=== PATIENT | female | born 1990 | race Caucasian/White ===

== ENCOUNTER 2020-01-25 12:44 | Outpatient (CLI) | payer MEDICAID, SELFPAY ==
--- NOTE | 2020-01-25 13:00 | MM_ITS ---
WS: [id number] DIAGNOSTIC RIGHT DIGITAL MAMMOGRAM WITH CAD RIGHT breast ultrasound, limited HISTORY: FIBROCYSTIC RT BREAST, palpable mass which has decreased in size and nearly resolved over th e last several weeks. COMPARISON: None available. Technique: CC, MLO and ML views. Spot compression RIGHT CC Breast composition: The breasts are heterogeneously dense, which may obscure small masses. There is no mass or distortion in the RIGHT breast along the 9:00 axis at the palpable site. There is dense fi broglandular tissue diffusely noted throughout the breast. No distortion. RIGHT breast ultrasound, limited. In the area of the palpable abnormality is a hypoechoic ill-defined mass of mixed echogenicity measur ing 9 x 4 x 9 mm. No increased vascularity. This is most likely fibrocystic change. This is described as decreasing in size by the patient. MM/[place] [id number] IMPRESSION: BI-RADS: 3-Probably Benign FOLLOW UP: 3 Month Follow-up Recommend 3 month ultrasound follow-up of the RIGHT breast palpable area. This has significantly decreased in size over the past several weeks therefore I zahira pect this is probably benign fibrocystic change. As there is residual mixed ech ogenicity in the palpable area short-term follow-up is recommended.
--- NOTE | 2020-01-25 13:05 | US_ITS ---
WS: [id number] DIAGNOSTIC RIGHT DIGITAL MAMMOGRAM WITH CAD RIGHT breast ultrasound, limited HISTORY: FIBROCYSTIC RT BREAST, palpable mass which has decreased in size and nearly resolved over th e last several weeks. COMPARISON: None available. Technique: CC, MLO and ML views. Spot compression RIGHT CC Breast composition: The breasts are heterogeneously dense, which may obscure small masses. There is no mass or distortion in the RIGHT breast along the 9:00 axis at the palpable site. There is dense fi broglandular tissue diffusely noted throughout the breast. No distortion. RIGHT breast ultrasound, limited. In the area of the palpable abnormality is a hypoechoic ill-defined mass of mixed echogenicity measur ing 9 x 4 x 9 mm. No increased vascularity. This is most likely fibrocystic change. This is described as decreasing in size by the patient. US/US breast RT limited* [id number] IMPRESSION: BI-RADS: 3-Probably Benign FOLLOW UP: 3 Month Follow-up Recommend 3 month ultrasound follow-up of the RIGHT breast palpable area. This has significantly decreased in size over the past several weeks therefore I zahira pect this is probably benign fibrocystic change. As there is residual mixed ech ogenicity in the palpable area short-term follow-up is recommended.
== END 2020-01-25 12:45 | disposition home or self-care (01) ==
LOC: RADSHAW 12:49
PROVIDERS: PCP Family Medicine; Visit Provider Family Medicine
DX: N60.11 Diffuse cystic mastopathy of right breast (principal)
CPT/HCPCS: 76642; 77065

== ENCOUNTER 2020-05-02 08:10 | Outpatient (CLI) | payer MEDICAID, SELFPAY ==
--- NOTE | 2020-05-02 08:34 | US_ITS ---
WS: [id number] ULTRASOUND BREAST RIGHT TECHNIQUE: Ultrasound right breast focused area of concern. CLINICAL INFORMATION: R FIBROCYSTIC BREAST COMPARISON: January 25, 2020 FINDINGS: Ultrasound right breast at the 9:00 position. Again seen is dense underlying parenchymal tissue uncha nged in appearance since the prior examination. Dense parenchymal tissue is unchanged in appearance m ost consistent with fibrocystic change. Findings have a benign appearance. IMPRESSION: BI-RADS 2 benign Recommend annual screening mammography age 42
== END 2020-05-02 08:11 | disposition home or self-care (01) ==
PROVIDERS: PCP Family Medicine; Visit Provider Family Medicine
DX: N64.89 Other specified disorders of breast (principal)
CPT/HCPCS: 76642

== ENCOUNTER 2020-09-08 14:09 | Outpatient (CLI) | payer MEDICAID, SELFPAY ==
--- NOTE | 2020-09-08 14:16 | US_ITS ---
WS: [id number] ULTRASOUND THYROID TECHNIQUE: Ultrasound of the thyroid. CLINICAL INFORMATION: THYROID NODULE COMPARISON: FINDINGS: Thyroid: Right and left thyroid lobes are normal in size and echotexture. Hypoechoic solid-appearing right thyroid nodule with internal vascularity is not significantly changed since 2018. Today this me asures 2.2 x 1.0 cm x 2.1 cm Right thyroid lobe: 5.8 cm x 2.9 cm x 2.1 cm Left thyroid lobe: 5.0 cm x 2.3 cm x 2.3 cm. Isthmus: 0.3 mm. Cervical lymphadenopathy: None. US/US thyroid [id number] IMPRESSION: 1. Hypoechoic right thyroid nodule unchanged since . Today this measur es 2.2 x 1.0 cm x 2.1 cm 2. No other significant changes. 3. No nodules in the left thyroid lobe.
== END 2020-09-08 14:10 | disposition home or self-care (01) ==
LOC: US 14:11
PROVIDERS: PCP Family Medicine; Visit Provider Family Medicine
DX: E04.1 Nontoxic single thyroid nodule (principal)
CPT/HCPCS: 76536

== ENCOUNTER 2021-04-13 08:47 | Emergency (ER) | payer MEDICAID, SELFPAY ==
[2021-04-13 08:52] VITALS: BP 158/99; PULSE 96; RESP 17; O2SAT 100; BMI 35.5
--- NOTE | 2021-04-13 09:06 | W.ED.ANXIETY ---
Documented by User: DWAYNE Posada 04/13/21 11:27 HPI - Anxiety General: Chief Complaint: Anxiety Stated Complaint: Chest pains, anxiety, dizziness Time Seen by Provider: 04/13/21 08:48 Source: patient and family () Mode of arrival: ambulatory Limitations: no limitations History of Present Illness: HPI narrative: Patient is a nice 30-year-old female who presents to ED today along with her with a complaint of severe anxiety. Patient tells me she has a history of anxiety but states ever since her COVID infection in January, her anxiety has been substantially worse and is now interfering significantly with her daily life. She states she can no longer be alone and if her needs to leave the house she will immediately start crying, tell him that she is going with him, or walk up to her mom's house. She states when she becomes extremely anxious she gets sweaty, flushed, feels shaky, lightheaded, and feels like her heart is racing. She states she has taken her BP during these episodes and reports it is usually normotensive. She does state her HR increases to 120s. She has seen her PCP Dr. Decker who has placed her on Prozac and as needed Xanax. She feels like she has taken the Xanax more frequently over the past 6 days because anxiety has gotten so bad. complaint: anxiety Symptoms: palpitations, sense of impending doom and other (sweaty, lightheaded ) Severity: severe Relieving factors: nothing Associated symptoms: Reports palpitations; Deny chest pain, chills, fever(s), headache(s), nausea or vomiting Review of Systems Const: Denies: fever(s) or chills Card: Reports: palpitations, lightheadedness and pre-syncope; Denies: chest pain, irregular heart rhythm, edema, swelling of feet/ankles, dyspnea on exertion, orthopnea, leg pain with exertion or acrocyanosis Resp: Denies: dyspnea or chest congestion GI: Denies: abdominal pain, nausea, vomiting or diarrhea Musc: Denies: neck pain, back pain, extremity pain or joint pain Skin/Breast: Denies: rash Neuro: Denies: headache(s) Psych: Reports: anxiety and panic attacks; Denies: depression, irritability, visual hallucinations, auditory hallucinations, suicidal ideation or homicidal ideation Physical Exam Const: COMMON NORMALS: no acute distress, patient oriented x3, no limitations, alert and well nourished GENERAL APPEARANCE: cooperative, well kempt and anxious (at times) NUTRITIONAL APPEARANCE: overweight ORIENTATION/CONSCIOUSNESS: Yes awake, Yes oriented to person, Yes oriented to place and Yes oriented to time HENMT: COMMON NORMALS: normocephalic and atraumatic HEAD & SCALP: normocephalic and atraumatic Resp: COMMON NORMALS: normal respiratory effort and clear to auscultation bilaterally AUSCULTATION: clear to auscultation bilaterally Cardio: COMMON NORMALS: regular rate and regular rhythm RATE: regular rate RHYTHM: regular rhythm OTHER: pt does become tachycardic when she starts describing how debilitating her anxiety is; she becomes very tearful; HR normalizes once she calms down a bit Neuro: COMMON NORMALS: patient oriented x3 SENSORIUM/ORIENTATION: Yes alert, Yes oriented to person, Yes oriented to place and Yes oriented to time Psych: COMMON NORMALS: mental status grossly normal, Normal thought process present, cooperative, normal affect, speech normal and activity/motor behavior normal APPEARANCE: Yes grossly normal and Yes well kempt ATTITUDE: Yes calm ACTIVITY/MOTOR BEHAVIOR: Yes appropriate eye contact and No psychomotor agitation SPEECH: Yes normal speech MOOD & AFFECT: Yes euthymic mood and Yes tearful (at times during history taking) THOUGHT PROCESS: Normal thought process present THOUGHT CONTENT: Yes Normal thought content present ATTENTION/CONCENTRATION: Yes attention grossly intact and Yes concentration grossly intact MEMORY/COGNITION: Yes memory grossly intact and Yes cognition grossly intact INSIGHT: Good insight present (Psych) JUDGEMENT: Good judgement present (Psych) Course Consultations: Consultation #1: Dr. Castillo-recommended starting on Buspar 15mg BID, decreasing Prozac to 10mg daily, and Propranolol 20mg up to TID PRN Vital Signs: Vital signs: Vital Signs Temperature 98.3 F 04/13/21 09:16 Pulse Rate 87 04/13/21 11:46 Respiratory Rate 17 04/13/21 11:46 Blood Pressure 129/80 04/13/21 11:46 Pulse Oximetry 99 04/13/21 11:46 MDM - Anxiety MDM Narrative: Medical decision making narrative: Patient is not acutely suicidal or homicidal. She does not meet inpatient criteria at this time. Spoke to the psychiatrist on-call who recommended placing patient on BuSpar and propranolol as needed and decreasing her Prozac. Patient apparently has had prescriptions for BuSpar and Metoprolol but has never filled them or taken them. Recommend she keep her appointment with [facility] next month. Return to ED precautions given. EKG Data^: EKG 1: EKG interpretation date: 04/13/21 EKG interpretation time: 08:55 Interpretation: Sinus rhythm with short KY interval KY interval [address] elevation or depression changes noted Signed off by Dr. Crouch Lab Data: Labs: Lab Results 04/13/21 04/13/21 04/13/21 Range/Units 09:07 09:27 09:27 WBC 10.1 H (4.0-10.0) 10^3/ uL RBC 5.52 H (4.1-5.3) 10^6/u L Hgb 15.2 (11.5-15.3) g/dL Hct 47.6 H (37.0-47.0) % MCV 86.2 (81-99) fl MCH 27.5 L (28.0-34.0) pg MCHC 31.9 (30.0-36.0) g/dL RDW 13.5 (12.1-15.1) % Plt Count 328 (130-400) 10^3/c mm MPV 10.5 H (7.4-10.4) fL Neut % (Auto) 74.9 % Lymph % (Auto) 18.7 % [place] % (Auto) 5.0 % Eos % (Auto) 0.4 % Baso % (Auto) 0.7 % Neut # (Auto) 7.54 (1.8-7.7) 10^3/u L Lymph # (Auto) 1.9 (0.8-4.8) 10^3/u L [place] # (Auto) 0.5 (0.2-0.9) 10^3/u L Eos # (Auto) 0.0 (0.0-0.8) 10^3/u L Baso # (Auto) 0.1 (0.0-0.1) 10^3/u L Nucleated RBC % (a uto) 0 % Nucleated RBCs # 0.0 /100WBC D-Dimer (0-0.59) ug/mIFE U Sodium 140 (136-145) mmol/L Potassium 3.6 (3.5-5.1) mmol/L Chloride 104 (98-107) mmol/L Carbon Dioxide 22 (22-29) mmol/L Anion Gap 17.6 (5-19) BUN 9 (6-20) mg/dL Creatinine 0.5 (0.5-0.9) mg/dL GFR Calculation 146.9 H (90-130) mL/min Glucose 98 (65-115) mg/dL Calculated Osmolal ity 289 (285-295) mOsm/k g Calcium 9.7 (8.5-10.5) mg/dL Total Bilirubin 0.6 (0.15-1.2) mg/dL AST 16 (0-32) U/L ALT 27 (0-33) U/L Alkaline Phosphata se 100 (35-105) IU/L Total Protein 7.7 (6.6-8.7) g/dL Albumin 4.9 (3.5-5.2) g/dL Globulin 2.8 (1.3-4.6) g/dL TSH 1.42 (0.27-4.20) uIU/ mL HCG, Qual (Negative) Salicylates < 0.3 L (3-10) mg/dL Urine Opiates Scre en Negative (Negative) ng/mL Acetaminophen < 5.0 L (10-30) ug/mL Ur Barbiturates Sc reen Negative (Negative) ng/mL Ur Phencyclidine S crn Negative (Negative) ng/mL Ur Amphetamines Sc reen Negative (Negative) ng/mL U Benzodiazepines Scrn Negative (Negative) ng/mL Urine Cocaine Scre en Negative (Negative) ng/mL U Marijuana (THC) Screen Negative (Negative) ng/mL Ethyl Alcohol < 10 (0-10) mg/dL 04/13/21 04/13/21 Range/Units 09:27 09:27 WBC (4.0-10.0) 10^3/ uL RBC (4.1-5.3) 10^6/u L Hgb (11.5-15.3) g/dL Hct (37.0-47.0) % MCV (81-99) fl MCH (28.0-34.0) pg MCHC (30.0-36.0) g/dL RDW (12.1-15.1) % Plt Count (130-400) 10^3/c mm MPV (7.4-10.4) fL Neut % (Auto) % Lymph % (Auto) % [place] % (Auto) % Eos % (Auto) % Baso % (Auto) % Neut # (Auto) (1.8-7.7) 10^3/u L Lymph # (Auto) (0.8-4.8) 10^3/u L [place] # (Auto) (0.2-0.9) 10^3/u L Eos # (Auto) (0.0-0.8) 10^3/u L Baso # (Auto) (0.0-0.1) 10^3/u L Nucleated RBC % (a uto) % Nucleated RBCs # /100WBC D-Dimer 0.40 (0-0.59) ug/mIFE U Sodium (136-145) mmol/L Potassium (3.5-5.1) mmol/L Chloride (98-107) mmol/L Carbon Dioxide (22-29) mmol/L Anion Gap (5-19) BUN (6-20) mg/dL Creatinine (0.5-0.9) mg/dL GFR Calculation (90-130) mL/min Glucose (65-115) mg/dL Calculated Osmolal ity (285-295) mOsm/k g Calcium (8.5-10.5) mg/dL Total Bilirubin (0.15-1.2) mg/dL AST (0-32) U/L ALT (0-33) U/L Alkaline Phosphata se (35-105) IU/L Total Protein (6.6-8.7) g/dL Albumin (3.5-5.2) g/dL Globulin (1.3-4.6) g/dL TSH (0.27-4.20) uIU/ mL HCG, Qual Negative (Negative) Salicylates (3-10) mg/dL Urine Opiates Scre en (Negative) ng/mL Acetaminophen (10-30) ug/mL Ur Barbiturates Sc reen (Negative) ng/mL Ur Phencyclidine S crn (Negative) ng/mL Ur Amphetamines Sc reen (Negative) ng/mL U Benzodiazepines Scrn (Negative) ng/mL Urine Cocaine Scre en (Negative) ng/mL U Marijuana (THC) Screen (Negative) ng/mL Ethyl Alcohol (0-10) mg/dL Discharge Plan Discharge Patient Disposition: Home Clinical Impression: Anxiety, Panic attacks Condition: Stable Prescriptions: New Prozac 10 mg capsule 10 mg PO DAILY Qty: 30 RF: 0 propranolol 20 mg tablet 20 mg PO Q8H PRN (Reason: anxiety) Qty: 20 RF: 0 Continued buspirone 15 mg Tablet 15 mg PO BID Qty: 60 RF: 0 Discontinued fluoxetine 40 mg capsule 40 mg PO DAILY RF: 0 fluoxetine 20 mg capsule 20 mg PO DAILY RF: 0 risperidone 1 mg Tablet 1 mg PO BEDTIME RF: 0 metoprolol tartrate 25 mg tablet 25 mg PO BID RF: 0 No Action Tylenol Extra Strength 500 mg Tablet 500 - 1,000 mg PO Q6H PRN (Reason: Pain) RF: 0 Xanax 0.5 mg Tablet 0.5 mg PO Q8H PRN (Reason: Anxiety) RF: 0 Xanax 0.25 mg Tablet 0.25 mg PO Q8H PRN (Reason: Anxiety) RF: 0 Singulair 10 mg Tablet 10 mg PO DAILY PRN (Reason: unknown) RF: 0 Discharge Orders: Discharge ED (Routine); Ordered 04/13/21 Ordered By: Mady Rao Referrals: Lloyd Decker MD [Primary Care Provider] - Patient Instructions: Anxiety (ED), Panic Attack Activity Restrictions/Additional Instructions: As we discussed we are decreasing your Prozac to 10 mg daily. We will start you on BuSpar 15 mg twice daily. You may take the propranolol every 8 hours as needed for severe anxiety/panic attacks. This medication does have the potential to cause low blood pressure even at a low dose so please monitor pressure at home. Do not take if blood pressure is below 110/70. Please keep your appointment with [facility] as scheduled. Return to the emergency department immediately for any thoughts of self-harm. Coding Level of Care Code ED Automation Application Engineer for Michael Fwd Exam Detailed Documented by User: Aden Crouch DO 04/13/21 12:06 HPI - Anxiety General: Chief Complaint: Anxiety Stated Complaint: Chest pains, anxiety, dizziness Time Seen by Provider: 04/13/21 08:48 Course Vital Signs: Vital signs: Vital Signs Temperature 98.3 F 04/13/21 09:16 Pulse Rate 87 04/13/21 11:46 Respiratory Rate 17 04/13/21 11:46 Blood Pressure 129/80 04/13/21 11:46 Pulse Oximetry 99 04/13/21 11:46 MDM - Anxiety MDM Narrative: Medical decision making narrative: Reviewed chart reviewed reviewed and discussed with Mady Rao agree with assessment and plan Lab Data: Labs: Lab Results 04/13/21 04/13/21 04/13/21 Range/Units 09:07 09:27 09:27 WBC 10.1 H (4.0-10.0) 10^3/ uL RBC 5.52 H (4.1-5.3) 10^6/u L Hgb 15.2 (11.5-15.3) g/dL Hct 47.6 H (37.0-47.0) % MCV 86.2 (81-99) fl MCH 27.5 L (28.0-34.0) pg MCHC 31.9 (30.0-36.0) g/dL RDW 13.5 (12.1-15.1) % Plt Count 328 (130-400) 10^3/c mm MPV 10.5 H (7.4-10.4) fL Neut % (Auto) 74.9 % Lymph % (Auto) 18.7 % [place] % (Auto) 5.0 % Eos % (Auto) 0.4 % Baso % (Auto) 0.7 % Neut # (Auto) 7.54 (1.8-7.7) 10^3/u L Lymph # (Auto) 1.9 (0.8-4.8) 10^3/u L [place] # (Auto) 0.5 (0.2-0.9) 10^3/u L Eos # (Auto) 0.0 (0.0-0.8) 10^3/u L Baso # (Auto) 0.1 (0.0-0.1) 10^3/u L Nucleated RBC % (a uto) 0 % Nucleated RBCs # 0.0 /100WBC D-Dimer (0-0.59) ug/mIFE U Sodium 140 (136-145) mmol/L Potassium 3.6 (3.5-5.1) mmol/L Chloride 104 (98-107) mmol/L Carbon Dioxide 22 (22-29) mmol/L Anion Gap 17.6 (5-19) BUN 9 (6-20) mg/dL Creatinine 0.5 (0.5-0.9) mg/dL GFR Calculation 146.9 H (90-130) mL/min Glucose 98 (65-115) mg/dL Calculated Osmolal ity 289 (285-295) mOsm/k g Calcium 9.7 (8.5-10.5) mg/dL Total Bilirubin 0.6 (0.15-1.2) mg/dL AST 16 (0-32) U/L ALT 27 (0-33) U/L Alkaline Phosphata se 100 (35-105) IU/L Total Protein 7.7 (6.6-8.7) g/dL Albumin 4.9 (3.5-5.2) g/dL Globulin 2.8 (1.3-4.6) g/dL TSH 1.42 (0.27-4.20) uIU/ mL HCG, Qual (Negative) Salicylates < 0.3 L (3-10) mg/dL Urine Opiates Scre en Negative (Negative) ng/mL Acetaminophen < 5.0 L (10-30) ug/mL Ur Barbiturates Sc reen Negative (Negative) ng/mL Ur Phencyclidine S crn Negative (Negative) ng/mL Ur Amphetamines Sc reen Negative (Negative) ng/mL U Benzodiazepines Scrn Negative (Negative) ng/mL Urine Cocaine Scre en Negative (Negative) ng/mL U Marijuana (THC) Screen Negative (Negative) ng/mL Ethyl Alcohol < 10 (0-10) mg/dL 04/13/21 04/13/21 Range/Units 09:27 09:27 WBC (4.0-10.0) 10^3/ uL RBC (4.1-5.3) 10^6/u L Hgb (11.5-15.3) g/dL Hct (37.0-47.0) % MCV (81-99) fl MCH (28.0-34.0) pg MCHC (30.0-36.0) g/dL RDW (12.1-15.1) % Plt Count (130-400) 10^3/c mm MPV (7.4-10.4) fL Neut % (Auto) % Lymph % (Auto) % [place] % (Auto) % Eos % (Auto) % Baso % (Auto) % Neut # (Auto) (1.8-7.7) 10^3/u L Lymph # (Auto) (0.8-4.8) 10^3/u L [place] # (Auto) (0.2-0.9) 10^3/u L Eos # (Auto) (0.0-0.8) 10^3/u L Baso # (Auto) (0.0-0.1) 10^3/u L Nucleated RBC % (a uto) % Nucleated RBCs # /100WBC D-Dimer 0.40 (0-0.59) ug/mIFE U Sodium (136-145) mmol/L Potassium (3.5-5.1) mmol/L Chloride (98-107) mmol/L Carbon Dioxide (22-29) mmol/L Anion Gap (5-19) BUN (6-20) mg/dL Creatinine (0.5-0.9) mg/dL GFR Calculation (90-130) mL/min Glucose (65-115) mg/dL Calculated Osmolal ity (285-295) mOsm/k g Calcium (8.5-10.5) mg/dL Total Bilirubin (0.15-1.2) mg/dL AST (0-32) U/L ALT (0-33) U/L Alkaline Phosphata se (35-105) IU/L Total Protein (6.6-8.7) g/dL Albumin (3.5-5.2) g/dL Globulin (1.3-4.6) g/dL TSH (0.27-4.20) uIU/ mL HCG, Qual Negative (Negative) Salicylates (3-10) mg/dL Urine Opiates Scre en (Negative) ng/mL Acetaminophen (10-30) ug/mL Ur Barbiturates Sc reen (Negative) ng/mL Ur Phencyclidine S crn (Negative) ng/mL Ur Amphetamines Sc reen (Negative) ng/mL U Benzodiazepines Scrn (Negative) ng/mL Urine Cocaine Scre en (Negative) ng/mL U Marijuana (THC) Screen (Negative) ng/mL Ethyl Alcohol (0-10) mg/dL Discharge Plan Discharge Patient Disposition: Home Clinical Impression: Anxiety, Panic attacks Condition: Stable Prescriptions: New Prozac 10 mg capsule 10 mg PO DAILY Qty: 30 RF: 0 propranolol 20 mg tablet 20 mg PO Q8H PRN (Reason: anxiety) Qty: 20 RF: 0 Continued buspirone 15 mg Tablet 15 mg PO BID Qty: 60 RF: 0 Discontinued fluoxetine 40 mg capsule 40 mg PO DAILY RF: 0 fluoxetine 20 mg capsule 20 mg PO DAILY RF: 0 risperidone 1 mg Tablet 1 mg PO BEDTIME RF: 0 metoprolol tartrate 25 mg tablet 25 mg PO BID RF: 0 No Action Tylenol Extra Strength 500 mg Tablet 500 - 1,000 mg PO Q6H PRN (Reason: Pain) RF: 0 Xanax 0.5 mg Tablet 0.5 mg PO Q8H PRN (Reason: Anxiety) RF: 0 Xanax 0.25 mg Tablet 0.25 mg PO Q8H PRN (Reason: Anxiety) RF: 0 Singulair 10 mg Tablet 10 mg PO DAILY PRN (Reason: unknown) RF: 0 Discharge Orders: Discharge ED (Routine); Ordered 04/13/21 Ordered By: Mady Rao Referrals: Lloyd Decker MD [Primary Care Provider] - Patient Instructions: Anxiety (ED), Panic Attack Activity Restrictions/Additional Instructions: As we discussed we are decreasing your Prozac to 10 mg daily. We will start you on BuSpar 15 mg twice daily. You may take the propranolol every 8 hours as needed for severe anxiety/panic attacks. This medication does have the potential to cause low blood pressure even at a low dose so please monitor pressure at home. Do not take if blood pressure is below 110/70. Please keep your appointment with [facility] as scheduled. Return to the emergency department immediately for any thoughts of self-harm. Coding Level of Care Code ED Automation Application Engineer for Michael Fwkeith Exam Detailed
[2021-04-13 09:16] VITALS: BP 147/99; PULSE 85; RESP 13; TEMP 36.8; O2SAT 100
[2021-04-13 09:35] LABS: Basophils # 0.1 10^3/uL (0.0-0.1); Basophils % 0.7 %; Eosinophils % 0.4 %; Hematocrit 47.6 % (37.0-47.0); Hemoglobin 15.2 g/dL (11.5-15.3); Lymphocytes # 1.9 10^3/uL (0.8-4.8); Lymphocytes % 18.7 %; Mean Corpuscular HGB Conc 31.9 g/dL (30.0-36.0); Mean Corpuscular Hemoglobin 27.5 pg (28.0-34.0); Mean Corpuscular Volume 86.2 fl (81-99); Mean Platelet Volume 10.5 fL (7.4-10.4); Monocytes # 0.5 10^3/uL (0.2-0.9); Neutrophils # 7.54 10^3/uL (1.8-7.7); Neutrophils % 74.9 %; Nucleated Red Blood Cells % 0 %; Platelet Count 328 10^3/cmm (130-400); Red Blood Count 5.52 10^6/uL (4.1-5.3); Red Cell Distribution Width 13.5 % (12.1-15.1); White Blood Count 10.1 10^3/uL (4.0-10.0)
[2021-04-13 09:40] VITALS: BP 149/91; PULSE 91; RESP 24; O2SAT 99
--- NOTE | 2021-04-13 09:41 | PC.NURSE ---
Patient up from bed. This nurse checked on patient and patient states that standing sometimes helps with the anxiety. Left patient with visitor at bedside. No further needs at this time.
[2021-04-13 09:53] LABS: HCG, Serum Qual Negative (Negative)
[2021-04-13 09:58] LABS: Amphetamines Screen Urine Negative (Negative); Barbiturates Screen Urine Negative (Negative); Benzodiazepines Screen Urine Negative (Negative); Cocaine Screen Urine Negative (Negative); Opiate Screen Urine Negative (Negative); PCP Screen Urine Negative (Negative); THC Screen Urine Negative (Negative)
--- NOTE | 2021-04-13 10:00 | PC.PHAR ---
pt states she takes care of her own medications-pt states she has the metoprolol tart but doesnt take it,pt states she has prozac 40mg and took from wed to sat and then went back to taking the 20mg daily states she thought the 40mg was too much,pt states she has a rx for risperidone but hasnt taken it,pt has rx for xanax 0.25mg and 0.5mg pt states she normally takes the 0.25mg q8h prn--pt states she has buspar and only took it once and isnt going to take again-notes are made in the pharmacy comments
[2021-04-13 10:11] VITALS: BP 116/79; PULSE 90; RESP 19; O2SAT 100
--- NOTE | 2021-04-13 10:11 | PC.NURSE ---
Patient given sandwich and cheese stick. Patient states had not eaten since yesterday at noon. No further needs at this time.
[2021-04-13 10:15] LABS: Alanine Aminotransferase 27 U/L (0-33); Albumin Level 4.9 g/dL (3.5-5.2); Alkaline Phosphatase 100 IU/L (35-105); Anion Gap 17.6 (5-19); Aspartate Amino Transferase 16 U/L (0-32); Blood Urea Nitrogen 9 mg/dL (6-20); Calcium 9.7 mg/dL (8.5-10.5); Carbon Dioxide 22 mmol/L (22-29); Chloride 104 mmol/L (98-107); Globulin 2.8 g/dL (1.3-4.6); Glomerular Filtration Rate 146.9 mL/min (90-130); Glucose 98 mg/dL (65-115); Osmolality Calculated 289 mOsm/kg (285-295); Potassium 3.6 mmol/L (3.5-5.1); Sodium 140 mmol/L (136-145); Thyroid Stimulating Hormone 1.42 uIU/mL (0.27-4.20); Total Bilirubin 0.6 mg/dL (0.15-1.2); Total Protein 7.7 g/dL (6.6-8.7)
[2021-04-13 10:17] LABS: Acetaminophen < 5.0 ug/mL (10-30); Alcohol Level < 10 mg/dL (0-10); Salicylate < 0.3 mg/dL (3-10)
[2021-04-13 11:16] VITALS: BP 115/79; PULSE 82; RESP 17; O2SAT 99
[2021-04-13 11:46] VITALS: BP 129/80; PULSE 87; RESP 17; O2SAT 99
== END 2021-04-13 11:26 | disposition home or self-care (01) ==
PROVIDERS: Family Medicine; Emergency Provider Physician Assistant; PCP Family Medicine
DX: F41.9 Anxiety disorder, unspecified (principal); F41.0 Panic disorder [episodic paroxysmal anxiety]
CPT/HCPCS: 80053; 80306; 80307; 84443; 84703; 85025; 85378; 99283

== ENCOUNTER → 2021-05-07 12:36 | Outpatient (BNVA) | payer OTHER, MEDICAID, SELFPAY | PROVIDERS: PCP Family Medicine; Visit Provider Psychiatry & Neurology Psychiatry | DX: F41.1 Generalized anxiety disorder (principal); F41.0 Panic disorder [episodic paroxysmal anxiety]; F17.210 Nicotine dependence, cigarettes, uncomplicated; F43.9 Reaction to severe stress, unspecified | CPT/HCPCS: 99204 ==

== ENCOUNTER → 2021-06-17 08:54 | Outpatient (BNVA) | payer OTHER, SELFPAY | PROVIDERS: PCP Family Medicine; Visit Provider Counselor Mental Health | DX: F41.1 Generalized anxiety disorder (principal); F41.0 Panic disorder [episodic paroxysmal anxiety]; F43.9 Reaction to severe stress, unspecified | CPT/HCPCS: 90834 ==

== ENCOUNTER 2021-06-18 07:52 | Outpatient (CLI) | payer MEDICAID, SELFPAY ==
--- NOTE | 2021-06-18 08:00 | MR_ITS ---
WS: [id number] MRI HEAD WITH CONTRAST TECHNIQUE: Sagittal T1, T2 axial, T2 axial FLAIR, axial susceptibility weighted imaging, axial diffus ion weighted images, and coronal T2 images were obtained. Pre and post-T1 axial and post T1 coronal i mages. ADC and FSPGR images. CLINICAL INFORMATION: BENIGN PAROXYSMAL POSITIONAL VERTIGO COMPARISON: CT 2010 FINDINGS: No evidence of restricted diffusion to suggest acute ischemia. Ventricular system and basal cisterns are patent. Small T2 hyperintense focus in the right occipital white matter measuring 7 mm. No abnorm al gadolinium enhancement. One or 2 tiny foci of T2 hyperintensity in the subcortical white matter of doubtful clinical significance. Normal posterior fossa. Normal vascular flow voids at the skull base . No extra-axial fluid collections. No evidence of mass or mass effect. Paranasal sinuses are well aerated. Mucosal thickening right greater than left mastoid air cells. No hemosiderin on the susceptibly weighted images. 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 Normal optic chiasm and pituitary infund ibulum. Normal enhancing intrasellar pituitary tissue. Recommend correlation with pituitary function studies. Lesion is slightly eccentric to the left. This was likely present on the [address] and ap pears stable. Temporal lobes and hippocampal formations are normal in appearance. Normal cavernous si nuses and Meckel's cave. No abnormal gadolinium enhancement. Normal cavernous sinuses and Meckel's cave. Normal dural venous s inuses. MR/MR head wo/w con [id number] IMPRESSION: 1. No evidence of restricted diffusion to suggest acute ischemia. 2. Small focus of T2 hyperintensity in the right occipital white matter measur ing 7 mm. This is nonspecific in a patient this age but can be seen with infect ious/inflammatory, ischemic or demyelinating etiologies. No abnormal gadolinium enhancement. 3. A few additional tiny foci of T2 hyperintensity in subcortical white matter of doubtful clinical significance. 4. No abnormal gadolinium enhancement. 5. Partial opacification of the right greater than left mastoid air cells. 6. 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 Associated per ipheral enhancement. Normal optic chiasm and pituitary infundibulum. Correlatio n with pituitary function studies. Recommend 6-12 month follow-up with MRI pitu itary.
[2021-06-18] MEDS: gadobenate dimeglumine 20 mL vial IV (08:54)
== END 2021-06-18 07:53 | disposition home or self-care (01) ==
LOC: RADSHAW 07:58
PROVIDERS: PCP Family Medicine; Visit Provider Registered Nurse
DX: F43.9 Reaction to severe stress, unspecified (principal); F41.0 Panic disorder [episodic paroxysmal anxiety]; F41.1 Generalized anxiety disorder; F17.210 Nicotine dependence, cigarettes, uncomplicated
CPT/HCPCS: 70553; 99214; A9577

== ENCOUNTER → 2021-06-24 09:57 | Outpatient (BNVA) | payer OTHER, SELFPAY | PROVIDERS: PCP Family Medicine; Visit Provider Counselor Mental Health | DX: F41.1 Generalized anxiety disorder (principal); F41.0 Panic disorder [episodic paroxysmal anxiety]; F43.9 Reaction to severe stress, unspecified | CPT/HCPCS: 90834 ==

== ENCOUNTER → 2021-07-01 10:17 | Outpatient (BNVA) | payer OTHER, SELFPAY | PROVIDERS: PCP Family Medicine; Visit Provider Counselor Mental Health | DX: F41.1 Generalized anxiety disorder (principal); F41.0 Panic disorder [episodic paroxysmal anxiety]; F43.9 Reaction to severe stress, unspecified | CPT/HCPCS: 90837; 90834 ==

== ENCOUNTER → 2021-07-09 08:56 | Outpatient (BNVA) | payer OTHER, SELFPAY | PROVIDERS: PCP Family Medicine; Visit Provider Counselor Mental Health | DX: F41.1 Generalized anxiety disorder (principal); F41.0 Panic disorder [episodic paroxysmal anxiety]; F43.9 Reaction to severe stress, unspecified | CPT/HCPCS: 90834 ==

== ENCOUNTER → 2021-07-22 10:08 | Outpatient (BNVA) | payer OTHER, SELFPAY | PROVIDERS: PCP Family Medicine; Visit Provider Counselor Mental Health | DX: F41.1 Generalized anxiety disorder (principal); F41.0 Panic disorder [episodic paroxysmal anxiety]; F43.9 Reaction to severe stress, unspecified | CPT/HCPCS: 90837; 90834 ==

== ENCOUNTER → 2021-07-30 10:06 | Outpatient (BNVA) | payer OTHER, SELFPAY | PROVIDERS: PCP Family Medicine; Visit Provider Counselor Mental Health | DX: F41.1 Generalized anxiety disorder (principal); F41.0 Panic disorder [episodic paroxysmal anxiety]; F43.9 Reaction to severe stress, unspecified | CPT/HCPCS: 90837; 90834 ==

== ENCOUNTER → 2021-08-07 13:39 | Outpatient (BNVA) | payer OTHER, SELFPAY | PROVIDERS: PCP Family Medicine; Visit Provider Counselor Mental Health | DX: F41.1 Generalized anxiety disorder (principal); F41.0 Panic disorder [episodic paroxysmal anxiety] | CPT/HCPCS: 90834 ==

== ENCOUNTER → 2021-08-12 08:50 | Outpatient (BNVA) | payer OTHER, SELFPAY | PROVIDERS: PCP Family Medicine; Visit Provider Counselor Mental Health | DX: F41.1 Generalized anxiety disorder (principal); F41.0 Panic disorder [episodic paroxysmal anxiety] | CPT/HCPCS: 90834 ==

== ENCOUNTER → 2021-08-19 08:27 | Outpatient (BNVA) | payer OTHER, SELFPAY | PROVIDERS: PCP Family Medicine; Visit Provider Counselor Mental Health | DX: F41.1 Generalized anxiety disorder (principal); F41.0 Panic disorder [episodic paroxysmal anxiety]; F43.9 Reaction to severe stress, unspecified | CPT/HCPCS: 90837; 90834 ==

== ENCOUNTER → 2021-08-26 08:56 | Outpatient (BNVA) | payer OTHER, SELFPAY | PROVIDERS: PCP Family Medicine; Visit Provider Counselor Mental Health | DX: F41.1 Generalized anxiety disorder (principal); F41.0 Panic disorder [episodic paroxysmal anxiety]; F43.9 Reaction to severe stress, unspecified | CPT/HCPCS: 90834 ==

== ENCOUNTER → 2021-09-01 07:40 | Outpatient (BNVA) | payer OTHER, SELFPAY | PROVIDERS: PCP Family Medicine; Visit Provider Psychiatry & Neurology Psychiatry | DX: F43.9 Reaction to severe stress, unspecified (principal); F41.0 Panic disorder [episodic paroxysmal anxiety]; F41.1 Generalized anxiety disorder; F17.210 Nicotine dependence, cigarettes, uncomplicated | CPT/HCPCS: 99214 ==

== ENCOUNTER → 2021-09-02 08:45 | Outpatient (BNVA) | payer OTHER, SELFPAY | PROVIDERS: PCP Family Medicine; Visit Provider Counselor Mental Health | DX: F41.1 Generalized anxiety disorder (principal); F41.0 Panic disorder [episodic paroxysmal anxiety]; F43.9 Reaction to severe stress, unspecified | CPT/HCPCS: 90837; 90834 ==

== ENCOUNTER → 2021-09-09 09:19 | Outpatient (BNVA) | payer OTHER, SELFPAY | PROVIDERS: PCP Family Medicine; Visit Provider Counselor Mental Health | DX: F41.1 Generalized anxiety disorder (principal); F41.0 Panic disorder [episodic paroxysmal anxiety]; F43.9 Reaction to severe stress, unspecified | CPT/HCPCS: 90834 ==

== ENCOUNTER → 2021-09-16 10:16 | Outpatient (BNVA) | payer OTHER, SELFPAY | PROVIDERS: PCP Family Medicine; Visit Provider Counselor Mental Health | DX: F41.1 Generalized anxiety disorder (principal); F41.0 Panic disorder [episodic paroxysmal anxiety]; F43.9 Reaction to severe stress, unspecified | CPT/HCPCS: 90832; 90834 ==

== ENCOUNTER → 2021-09-23 10:12 | Outpatient (BNVA) | payer OTHER, SELFPAY | PROVIDERS: PCP Family Medicine; Visit Provider Counselor Mental Health | DX: F43.0 Acute stress reaction (principal); F41.0 Panic disorder [episodic paroxysmal anxiety]; F41.1 Generalized anxiety disorder | CPT/HCPCS: 90832 ==

== ENCOUNTER → 2021-10-07 09:11 | Outpatient (BNVA) | payer OTHER, SELFPAY | PROVIDERS: PCP Family Medicine; Visit Provider Counselor Mental Health | DX: F43.9 Reaction to severe stress, unspecified (principal); F41.0 Panic disorder [episodic paroxysmal anxiety]; F41.1 Generalized anxiety disorder | CPT/HCPCS: 90834 ==

== ENCOUNTER → 2021-10-13 07:38 | Outpatient (BNVA) | payer OTHER, SELFPAY | PROVIDERS: PCP Family Medicine; Visit Provider Psychiatry & Neurology Psychiatry | DX: F41.0 Panic disorder [episodic paroxysmal anxiety] (principal); F17.210 Nicotine dependence, cigarettes, uncomplicated; F43.9 Reaction to severe stress, unspecified; F41.1 Generalized anxiety disorder | CPT/HCPCS: 99213 ==

== ENCOUNTER → 2021-10-14 08:59 | Outpatient (BNVA) | payer OTHER, SELFPAY | PROVIDERS: PCP Family Medicine; Visit Provider Counselor Mental Health | DX: F41.0 Panic disorder [episodic paroxysmal anxiety] (principal); F41.1 Generalized anxiety disorder; F43.9 Reaction to severe stress, unspecified | CPT/HCPCS: 90837; 90834 ==

== ENCOUNTER → 2021-10-21 10:09 | Outpatient (BNVA) | payer OTHER, SELFPAY | PROVIDERS: PCP Family Medicine; Visit Provider Counselor Mental Health | DX: F43.9 Reaction to severe stress, unspecified (principal); F41.0 Panic disorder [episodic paroxysmal anxiety]; F41.1 Generalized anxiety disorder | CPT/HCPCS: 90837; 90834 ==

== ENCOUNTER → 2021-10-28 08:53 | Outpatient (BNVA) | payer OTHER, SELFPAY | PROVIDERS: PCP Family Medicine; Visit Provider Counselor Mental Health | DX: F43.9 Reaction to severe stress, unspecified (principal); F41.0 Panic disorder [episodic paroxysmal anxiety]; F41.1 Generalized anxiety disorder | CPT/HCPCS: 90834 ==

== ENCOUNTER → 2021-11-04 10:51 | Outpatient (BNVA) | payer OTHER, SELFPAY | PROVIDERS: PCP Family Medicine; Visit Provider Counselor Mental Health | DX: F43.9 Reaction to severe stress, unspecified (principal); F41.0 Panic disorder [episodic paroxysmal anxiety]; F41.1 Generalized anxiety disorder | CPT/HCPCS: 90834; 87070; 87205 ==

== ENCOUNTER → 2021-11-11 09:52 | Outpatient (BNVA) | payer OTHER, SELFPAY | PROVIDERS: PCP Family Medicine; Visit Provider Counselor Mental Health | DX: F41.1 Generalized anxiety disorder (principal); F43.9 Reaction to severe stress, unspecified; F41.0 Panic disorder [episodic paroxysmal anxiety] | CPT/HCPCS: 90834 ==

== ENCOUNTER → 2021-11-18 09:51 | Outpatient (BNVA) | payer OTHER, SELFPAY | PROVIDERS: PCP Family Medicine; Visit Provider Counselor Mental Health | DX: F41.1 Generalized anxiety disorder (principal); F43.9 Reaction to severe stress, unspecified; F41.0 Panic disorder [episodic paroxysmal anxiety] | CPT/HCPCS: 90834 ==

== ENCOUNTER → 2021-11-25 09:58 | Outpatient (BNVA) | payer OTHER, SELFPAY | PROVIDERS: PCP Family Medicine; Visit Provider Counselor Mental Health | DX: F43.9 Reaction to severe stress, unspecified (principal); F41.0 Panic disorder [episodic paroxysmal anxiety]; F41.1 Generalized anxiety disorder | CPT/HCPCS: 90837; 90834 ==

== ENCOUNTER → 2021-12-02 10:11 | Outpatient (BNVA) | payer OTHER, SELFPAY | PROVIDERS: PCP Family Medicine; Visit Provider Counselor Mental Health | DX: F41.1 Generalized anxiety disorder (principal); F43.9 Reaction to severe stress, unspecified; F41.0 Panic disorder [episodic paroxysmal anxiety] | CPT/HCPCS: 90834 ==

== ENCOUNTER → 2021-12-09 09:39 | Outpatient (BNVA) | payer OTHER, SELFPAY | PROVIDERS: PCP Family Medicine; Visit Provider Counselor Mental Health | DX: F43.9 Reaction to severe stress, unspecified (principal); F41.0 Panic disorder [episodic paroxysmal anxiety]; F41.1 Generalized anxiety disorder | CPT/HCPCS: 90837; 90834 ==

== ENCOUNTER → 2021-12-16 10:06 | Outpatient (BNVA) | payer OTHER, SELFPAY | PROVIDERS: PCP Family Medicine; Visit Provider Counselor Mental Health | DX: F41.0 Panic disorder [episodic paroxysmal anxiety] (principal); F43.9 Reaction to severe stress, unspecified; F41.1 Generalized anxiety disorder | CPT/HCPCS: 90834 ==

== ENCOUNTER → 2021-12-23 09:57 | Outpatient (BNVA) | payer OTHER, SELFPAY | PROVIDERS: PCP Family Medicine; Visit Provider Counselor Mental Health | DX: F41.1 Generalized anxiety disorder (principal); F43.9 Reaction to severe stress, unspecified; F41.0 Panic disorder [episodic paroxysmal anxiety] | CPT/HCPCS: 90834 ==

== ENCOUNTER → 2021-12-30 10:20 | Outpatient (BNVA) | payer OTHER, SELFPAY | PROVIDERS: PCP Family Medicine; Visit Provider Counselor Mental Health | DX: F41.1 Generalized anxiety disorder (principal); F43.9 Reaction to severe stress, unspecified; F41.0 Panic disorder [episodic paroxysmal anxiety] | CPT/HCPCS: 90832 ==

== ENCOUNTER → 2022-01-06 10:12 | Outpatient (BNVA) | payer OTHER, SELFPAY | PROVIDERS: PCP Family Medicine; Visit Provider Counselor Mental Health | DX: F41.1 Generalized anxiety disorder (principal); F43.9 Reaction to severe stress, unspecified; F41.0 Panic disorder [episodic paroxysmal anxiety] | CPT/HCPCS: 90837; 90834 ==

== ENCOUNTER → 2022-01-13 13:17 | Outpatient (BNVA) | payer OTHER, SELFPAY | PROVIDERS: PCP Family Medicine; Visit Provider Counselor Mental Health | DX: F41.0 Panic disorder [episodic paroxysmal anxiety] (principal); F43.9 Reaction to severe stress, unspecified; F41.1 Generalized anxiety disorder | CPT/HCPCS: 90832 ==

== ENCOUNTER → 2022-01-22 10:05 | Outpatient (BNVA) | payer OTHER, SELFPAY | PROVIDERS: PCP Family Medicine; Visit Provider Counselor Mental Health | DX: F41.0 Panic disorder [episodic paroxysmal anxiety] (principal); F41.1 Generalized anxiety disorder; F43.9 Reaction to severe stress, unspecified | CPT/HCPCS: 90834 ==

== ENCOUNTER → 2022-02-03 10:08 | Outpatient (BNVA) | payer OTHER, SELFPAY | PROVIDERS: PCP Family Medicine; Visit Provider Counselor Mental Health | DX: F41.9 Anxiety disorder, unspecified (principal); F41.0 Panic disorder [episodic paroxysmal anxiety]; F41.1 Generalized anxiety disorder | CPT/HCPCS: 90834 ==

== ENCOUNTER 2022-09-15 07:21 | Outpatient (CLI) | payer MEDICAID, SELFPAY ==
--- NOTE | 2022-09-15 07:29 | MR_ITS ---
WS: [id number] MRI HEAD WITH CONTRAST TECHNIQUE: Sagittal T1, T2 axial, T2 axial FLAIR, axial susceptibility weighted imaging, axial diffus ion weighted images, and coronal T2 images were obtained. Pre and post-T1 axial and post T1 coronal i mages. ADC and FSPGR images. CLINICAL INFORMATION: EPISODIC RECURRENT VERTIGO COMPARISON: MRI June 18, 2021 FINDINGS: No evidence of restricted diffusion to suggest acute ischemia. Ventricular system and basal cisterns are patent. Stable 7 mm focus of T2 hyperintensity in the RIGHT occipital periventricular white matte r. A few additional tiny foci of T2 hyperintensity in the subcortical white matter unchanged from pre vious. No evidence of progression.No significant parenchymal volume loss. Small T1 hyperintense intrasellar lesion with slight suprasellar extension measuring 6.7 x 7.6 x 6.4 mm AP by transverse by craniocaudal. Slight mass effect on the pituitary infundibulum. Normal optic c hiasm. Suprasellar extension slightly increased compared to previous. Previously lesion measured appr oximately 5 mm. 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 Recommend ne urosurgery consultation. Associated peripheral enhancement. Correlation with pituitary function stud ies. Recommend 6-12 month follow-up with MRI pituitary. Normal posterior fossa. Normal vascular flow voids at the skull base. No extra-axial fluid collection s. Paranasal sinuses and mastoid air cells well aerated. Mild mucosal thickening in the mastoid tips . Normal posterior nasopharynx. Normal parapharyngeal fat. No hemosiderin on susceptibly weighted timi ges. No abnormal gadolinium enhancement. Normal cavernous sinuses and Meckel's cave. Temporal lobes and hi ppocampal formations are normal in appearance. Normal dural venous sinuses. MR/MR head wo/w con [id number] IMPRESSION: 1. No evidence of restricted diffusion to suggest acute ischemia. 2. Unchanged small focus of T2 hyperintensity in the right occipital white mat ter measuring 7 mm. This is nonspecific in a patient this age but can be seen w ith infectious/inflammatory, ischemic or demyelinating etiologies. No abnormal gadolinium enhancement. 3. A few additional tiny foci of T2 hyperintensity in subcortical white matter of doubtful clinical significance. 4. Small T1 hyperintense intrasellar lesion with slight suprasellar extension measuring 6.7 x 7.6 x 6.4 mm AP by transverse by craniocaudal appears slightly larger today. Slight mass effect on the pituitary infundibulum. Normal optic ch iasm. Suprasellar extension slightly increased compared to previous. 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 Recommend neuros urgery consultation. Correlation with pituitary function studies. Recommend 6-1 2 month follow-up with MRI pituitary without and with gadolinium enhancement.
[2022-09-15] MEDS: gadobenate dimeglumine 20 mL vial IV (08:14)
== END 2022-09-15 07:22 | disposition home or self-care (01) ==
PROVIDERS: PCP Family Medicine; Visit Provider Family Medicine
DX: R42 Dizziness and giddiness (principal); G93.89 Other specified disorders of brain
CPT/HCPCS: 70553; A9577

== ENCOUNTER 2023-11-02 09:00 | Emergency (ER) | payer MEDICAID, SELFPAY ==
[2023-11-02 09:04] VITALS: BP 110/76; PULSE 90; RESP 18; TEMP 36.8; O2SAT 100; BMI 31.3
--- NOTE | 2023-11-02 09:04 | ECG_ITS ---
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 [id number]
--- NOTE | 2023-11-02 09:04 | XR_ITS ---
WS: [id number] Portable AP upright chest, 11/02/2023 Clinical Data: dyspnea/cough Comparison: Two-view chest, 07/22/2015. Findings: No nodules, masses or effusions are seen. The heart is normal. The pulmonary vascularity is not increased. No pneumonia or pneumothorax is seen. Monitor leads are on the chest wall. Impression: Negative chest.
--- NOTE | 2023-11-02 09:09 | ED_ITS ---
HPI - Chest Pain 2 General: Chief Complaint: Chest Pain Stated Complaint: Chest Pain Time Seen by Provider: 11/02/23 09:01 Source: patient Mode of arrival: ambulatory History of Present Illness: 32-year-old female presents emergency ro om planing of intermittent chest pressure and palpitations. Began mostly today. Feels a fluttering sensation followed by shortness of breath. She has some nausea no vomiting. No history of any cardiac arrhythmias, she denies frequent use of caffeine. She is on Nexplanon for control. Takes alprazolam for anxiety MD complaint: chest pain Onset (ago): minute(s) Timing of current episode: episodic Onset: during rest Pain location: substernal Pain radiation: none Quality: heaviness Relieving factors: nothing Exacerbating factors: nothing Associated symptoms: Deny abdominal pain, diaphoresis, dyspnea, fever(s), leg edema, nausea, palpitations, sense of impending doom, syncope or vomiting Review of Systems 2 Const: Denies: fever(s) or diaphoresis Card: Denies: palpitations or syncope Resp: Denies: dyspnea GI: Denies: abdominal pain, nausea or vomiting : Denies: dysuria, urinary frequency or urinary urgency Musc: Denies: neck pain or back pain Skin/Breast: Denies: rash PFSH ED 2 PFSH: Medical History (Updated 11/02/23 @ 11:22 by Aden Crouch DO) 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 Garcia -neurologist and is on meclizine No pertinent past medical history Denies diabetes, asthma, hypertension, seizures, DVT/PE PCP: Dr. Decker Generalized anxiety disorder Diagnosed in January 2021 and is prescribed medication by her primary care provider but does follow-up with Dr. Temple at [facility] and does do therapy there as well. Surgical History History of myringotomy x 2 At the age of 9 and again at the age of 16 History of tonsillectomy and adenoidectomy Done at the age of 16 History of cholecystectomy Laparoscopic procedure in 2016 History of delivery in 2012 S/P dilation and curettage x 2 In 2014 and 2016 for miscarriage Family History Mother Diabetes Hyperlipidemia Hypertension Thyroid disease Father Diabetes Hypertension Grandmother Stroke Paternal Brother Cerebral palsy Denies family history of Colon cancer Ovarian cancer Heart disease Breast cancer Uterine cancer Social History Smoking and tobacco/nicotine status: current every day tobacco/nicotine user cigarettes Packs smoked per day: 1 Years cigarettes smoked: 16 Quit status (tobacco/nicotine): has tried quititng Number of times tried to quit tobacco: 5 Second hand smoke exposure: Yes Alcohol intake: never Substance/Drug Use: never Physical Exam 2 Const: COMMON NORMALS: no acute distress GENERAL APPEARANCE: cooperative and comfortable ORIENTATION/CONSCIOUSNESS: Yes awake, Yes oriented to person, Yes oriented to place and Yes oriented to time HENMT: COMMON NORMALS: normocephalic, atraumatic and hearing grossly normal bilaterally HEAD & SCALP: normocephalic and atraumatic Resp: COMMON NORMALS: normal respiratory effort, No retractions, No use of accessory muscles and clear to auscultation bilaterally AUSCULTATION: clear to auscultation bilaterally Cardio: COMMON NORMALS: regular rate, regular rhythm and No murmurs present (Cardio) RATE: regular rate RHYTHM: regular rhythm GI: COMMON NORMALS: Soft to palpation and No hepatosplenomegaly present A USCULTATION: Yes normoactive bowel sounds PALPATION: Yes Soft to palpation, No Tenderness to palpation present (GI), No Guarding due to palpation present (GI) and Yes No hepatosplenomegaly present Extremity: COMMON NORMALS: normal to inspection, capillary refill normal, no clubbing, cyanosis or edema, no calf tenderness and no pedal edema Neuro: SENSORIUM/ORIENTATION: Yes oriented to person, Yes oriented to place and Yes oriented to time Skin: COMMON NORMALS: no rashes or lesions noted GENERAL SKIN EXAM: no rashes or lesions noted Course 2 Vital Signs: Vital signs: Vital Signs Temperature 98.2 F 11/02/23 09:04 Pulse Rate 77 11/02/23 11:40 Respiratory Rate 17 11/02/23 11:40 Blood Pressure 110/76 11/02/23 09:11 Pulse Oximetry 100 11/02/23 09:11 Oxygen Delivery Me thod Room Air 11/02/23 09:04 MDM - Chest Pain Medical Decision Making Labs and imaging reviewed. No acute ST changes on EKG. White count normal chest x-ray normal. Symptoms not typical for acute coronary syndrome or PE. Patient is feeling better will discharge patient home follow-up with primary care. Return if has further problems. Medical Records I reviewed the patient's medical records. Lab Data I reviewed the patient's lab results. 11/02/23 09:10 11/02/23 09:10 Laboratory Results WBC 7.68 10^3/uL (3.29-11.43) 11/02/23 09:10 RBC 5.24 10^6/uL (3.85-5.65) 11/02/23 09:10 Hgb 14.80 g/dL (11.27-16.99) 11/02/23 09:10 Hct 45.4 % (36-47) 11/02/23 09:10 MCV 86.6 fl (85-98) 11/02/23 09:10 MCH 28.2 pg (27-33) 11/02/23 09:10 MCHC 32.6 g/dL (30-55) 11/02/23 09:10 RDW 13.2 % (12.1-15.1) 11/02/23 09:10 Plt Count 293 10^3/cmm (157-399) 11/02/23 09:10 MPV 9.6 fL (7.4-10.4) 11/02/23 09:10 Neut % (Auto) 66.5 % 11/02/23 09:10 Lymph % (Auto) 25.4 % 11/02/23 09:10 [place] % (Auto) 5.9 % 11/02/23 09:10 Eos % (Auto) 1.0 % 11/02/23 09:10 Baso % (Auto) 0.9 % 11/02/23 09:10 Neut # (Auto) 5.11 10^3/uL (1.8-7.7) 11/02/23 09:10 Lymph # (Auto) 2.0 10^3/uL (0.8-4.8) 11/02/23 09:10 [place] # (Auto) 0.5 10^3/uL (0.2-0.9) 11/02/23 09:10 Eos # (Auto) 0.1 10^3/uL (0.0-0.8) 11/02/23 09:10 Baso # (Auto) 0.1 10^3/uL (0.0-0.1) 11/02/23 09:10 Nucleated RBC % (auto) 0 % 11/02/23 09:10 Nucleated RBCs # 0.0 /100WBC 11/02/23 09:10 Sodium 141 mmol/L (136-145) 11/02/23 09:10 Potassium 4.0 mmol/L (3.5-5.1) 11/02/23 09:10 Chloride 106 mmol/L (98-107) 11/02/23 09:10 Carbon Dioxide 24 mmol/L (22-29) 11/02/23 09:10 Anion Gap 15.0 (5-19) 11/02/23 09:10 BUN 10 mg/dL (6-20) 11/02/23 09:10 Creatinine 0.7 mg/dL (0.5-0.9) 11/02/23 09:10 GFR Calculation 98.3 mL/min (90-130) 11/02/23 09:10 Glucose 94 mg/dL (65-115) 11/02/23 09:10 Calculated Osmolality 291 mOsm/kg (285-295) 11/02/23 09:10 Calcium 9.1 mg/dL (8.5-10.5) 11/02/23 09:10 Total Bilirubin 0.6 mg/dL (0.15-1.2) 11/02/23 09:10 AST 15 U/L (0-32) 11/02/23 09:10 ALT 14 U/L (0-33) 11/02/23 09:10 Alkaline Phosphatase 62 U/L (35-105) 11/02/23 09:10 Total Protein 7.1 g/dL (6.6-8.7) 11/02/23 09:10 Albumin 4.5 g/dL (3.5-5.2) 11/02/23 09:10 Globulin 2.6 g/dL (1.3-4.6) 11/02/23 09:10 Urine Color Yellow (Yellow) 11/02/23 09:26 Urine Appearance Clear (CLEAR) 11/02/23 09:26 Urine pH 6 (5-7) 11/02/23 09:26 Ur Specific [place] 1.030 (1.005-1.030) 11/02/23 09:26 Urine Protein Neg (Negative) 11/02/23 09:26 Urine Glucose (UA) Norm (Normal) 11/02/23 09:26 Urine Ketones 2+ (Negative) H 11/02/23 09:26 Urine Blood 2+ (Negative) H 11/02/23 09:26 Urine Nitrate Negative (Negative) 11/02/23 09:26 Urine Bilirubin Neg (Negative) 11/02/23 09:26 Urine Urobilinogen Norm mg/dL (Negative) 11/02/23 09:26 Ur Leukocyte Esterase Negative (Negative) 11/02/23 09:26 Urine RBC 0-4 /hpf (0-2) H 11/02/23 09:26 Urine WBC 0-4 /hpf (0-5) H 11/02/23 09:26 Ur Squamous Epith Cells 0-4 /hpf (0-5) H 11/02/23 09:26 Amorphous Sediment Not Reportable 11/02/23 09:26 Urine Bacteria Trace /hpf (NONE) 11/02/23 09:26 All radiology interpretation(s) finalized by discharge Discharge Plan Discharge Patient Disposition: Home Clinical Impression: Atypical chest pain, Mass of pituitary Condition: Stable Prescriptions: No Action Nexplanon 68 mg implant See Rx Instructions .ROUTE .COMPLEX Patient Comments: Implanted to left arm 07/15/2020. Good for 5 years. Rx Instructions: 1 implant subdermally acetaminophen [Tylenol Extra Strength] 500 mg Tablet 500 mg PO Q6H PRN (Reason: Pain) alprazolam 0.5 mg tablet 0.5 mg PO TID PRN (Reason: Anxiety) Discharge Orders: Discharge ED (Routine); Ordered 11/02/23 Ordered By: Aden Crouch Referrals: Lloyd Decker MD [Primary Care Provider] - Discharge Diet: Usual diet Discharge Activity: Increase activity as tolerated Patient Instructions: Opioid Safety, Pain Management Activity Restrictions/Additional Instructions: Thank you for choosing [facility] for your healthcare needs today. Please realize this is an emergency room and that we are providing you with a medical screening exam and this may not be complete and all inclusive of all the testing and or work up that you may need to determine your ailment or severity of your illness. It is very important that you follow up as instructed or that you return to the Emergency Department should you have concerns or if your condition changes or worsens in any way. You were seen today for chest discomfort. EKG laboratory studies and chest x- ray appear normal. Monitoring while you are in the emergency room did not show any arrhythmias. You had mentioned some occasional blurry vision difficulty focusing. It is important that you follow-up with your doctor in [place] on the pituitary mass for worsening or change symptoms return to the emergency room. Coding Level of Care Code ED [employer] Att[employer] for Michael Dupont
[2023-11-02 09:11] VITALS: BP 110/76; PULSE 83; RESP 15; O2SAT 100
--- NOTE | 2023-11-02 09:13 | PC.PHAR ---
pt states she takes care of her own medications-pt states she is no longer taking amitriptyline 10mg hs last filled 10/21/22 and lithium carbonate 300mg bid last filled 05/27/23 30d/s-pt states only takes xanax 0.5mg tid prn ext shows last filled 0.5mg tid 09/27/23 30d/s-
[2023-11-02 09:17] LABS: Basophils # 0.1 10^3/uL (0.0-0.1); Basophils % 0.9 %; Eosinophils # 0.1 10^3/uL (0.0-0.8); Hematocrit 45.4 % (36-47); Lymphocytes % 25.4 %; Mean Corpuscular HGB Conc 32.6 g/dL (30-55); Mean Corpuscular Hemoglobin 28.2 pg (27-33); Mean Corpuscular Volume 86.6 fl (85-98); Mean Platelet Volume 9.6 fL (7.4-10.4); Monocytes # 0.5 10^3/uL (0.2-0.9); Monocytes % 5.9 %; Neutrophils # 5.11 10^3/uL (1.8-7.7); Neutrophils % 66.5 %; Nucleated Red Blood Cells % 0 %; Platelet Count 293 10^3/cmm (157-399); Red Blood Count 5.24 10^6/uL (3.85-5.65); Red Cell Distribution Width 13.2 % (12.1-15.1); White Blood Count 7.68 10^3/uL (3.29-11.43)
[2023-11-02 09:38] LABS: Alanine Aminotransferase 14 U/L (0-33); Albumin Level 4.5 g/dL (3.5-5.2); Alkaline Phosphatase 62 U/L (35-105); Aspartate Amino Transferase 15 U/L (0-32); Blood Urea Nitrogen 10 mg/dL (6-20); Calcium 9.1 mg/dL (8.5-10.5); Carbon Dioxide 24 mmol/L (22-29); Chloride 106 mmol/L (98-107); Creatinine Clr Calc Pharmacy 131.3059; Globulin 2.6 g/dL (1.3-4.6); Glomerular Filtration Rate 98.3 mL/min (90-130); Glucose 94 mg/dL (65-115); Osmolality Calculated 291 mOsm/kg (285-295); Sodium 141 mmol/L (136-145); Total Bilirubin 0.6 mg/dL (0.15-1.2); Total Protein 7.1 g/dL (6.6-8.7)
[2023-11-02 09:45] LABS: Urine Appearance Clear (CLEAR); Urine Color Yellow (Yellow); pH Urine 6 (5-7)
[2023-11-02 09:46] LABS: Add Urine Culture? No; Add Urine Microscopic? YES; Bacteria Urine TRACE /hpf; Bilirubin Urine Neg (Negative); Blood Urine 2+ (Negative); Glucose Urine UA Norm (Normal); Ketones Urine 2+ (Negative); Leukocyte Esterase Urine Negative (Negative); Nitrate Urine Negative (Negative); Protein Urine Neg (Negative); RBC Urine 0-4 /hpf (0-2); Squamous Epithelial Cell Urine 0-4 /hpf (0-5); Urobilinogen Urine Norm (Negative); WBC Urine 0-4 /hpf (0-5)
[2023-11-02 10:40] VITALS: PULSE 77; RESP 17
[2023-11-02 11:40] VITALS: PULSE 77; RESP 17
== END 2023-11-02 11:41 | disposition home or self-care (01) ==
PROVIDERS: Emergency Provider Family Medicine; PCP Family Medicine
DX: R07.89 Other chest pain (principal); E23.7 Disorder of pituitary gland, unspecified; F17.210 Nicotine dependence, cigarettes, uncomplicated
CPT/HCPCS: 71045; 80053; 81001; 85025; 93005; 99285

== ENCOUNTER 2024-04-16 14:00 | Outpatient (CLI) | payer MEDICAID, SELFPAY ==
--- NOTE | 2024-04-16 14:15 | MM_ITS ---
WS: [id number] BILATERAL 3D TOMOSYNTHESIS DIGITAL DIAGNOSTIC MAMMOGRAPHY WITH CAD CLINICAL INFORMATION: MASS OF R BREAST HISTORY: Palpable lumps RIGHT breast. COMPARISON: 01/25/2020 and 05/02/2020 TECHNIQUE: Bilateral CC, MLO, and ML views. FINDINGS: The breasts are composed of heterogeneous fibroglandular density, which can limit the detection of sm all underlying mass lesions. Palpable marker is RIGHT breast. Dense breast tissue deep to the palpabl e marker central RIGHT breast. No definite abnormalities deep to the marker upper outer RIGHT breast. Ultrasound is pending. No abnormalities LEFT breast. ULTRASOUND BREAST RIGHT TECHNIQUE: Ultrasound right breast focused area of concern. CLINICAL INFORMATION: MASS OF R BREAST FINDINGS: Ultrasound RIGHT breast areas of concern 9:00 to 12:00 positions. Dense fibrocystic tissue at the 9 o 'clock position similar to the prior examination. This has a benign appearance. No suspicious abnorma lities at the 12 o'clock position. Dense fibrocystic tissue in this area also. No suspicious lesions to target for biopsy. MM/[place] [id number] IMPRESSION: BI-RADS: 2-Benign FOLLOW UP: Age 42 Recommend annual screening mammography age 42
== END 2024-04-16 14:12 | disposition home or self-care (01) ==
PROVIDERS: PCP Family Medicine; Visit Provider Nurse Practitioner Family
DX: N63.10 Unspecified lump in the right breast, unspecified quadrant (principal); R92.333 Mammographic heterogeneous density, bilateral breasts
CPT/HCPCS: 76642; 77062; G0279

== ENCOUNTER 2024-04-16 17:24 | Emergency (ER) | payer MEDICAID, SELFPAY ==
[2024-04-16 17:29] VITALS: BP 144/71; PULSE 113; TEMP 36.9; O2SAT 100
--- NOTE | 2024-04-16 17:36 | XRR_ITS ---
PROCEDURE INFORMATION: Exam: XR Chest Exam date and time: 04/16/2024 5:45 PM Age: 33 years old Clinical indication: Other: Shaking; Additional info: Seizure-like activity TECHNIQUE: Imaging protocol: Radiologic exam of the chest. Views: 1 view. COMPARISON: CR XR chest 1V portable [id number] 11/02/2023 9:18 AM FINDINGS: Lungs: Unremarkable. No consolidation. Pleural spaces: Unremarkable. No pleural effusion. No pneumothorax. Heart/Mediastinum: Unremarkable. No cardiomegaly. Bones/joints: Unremarkable. XR/XR chest 1V portable [id number] IMPRESSION: No acute findings.
--- NOTE | 2024-04-16 17:37 | W.ED.SEIZURE ---
HPI - Seizure General: Chief Complaint: Seizure Stated Complaint: shaking bad, light headed Time Seen by Provider: 04/16/24 17:26 Source: patient and family (mom) Mode of arrival: ambulatory Limitations: no limitations History of Present Illness: HPI Narrative: Patient is a 33-year-old female past medical history of anxiety and depression who presents to the emergency department accompanied by mom for shaking/seizure-like activity onset today. Per mom, patient had reported to her that she felt off all day, and had a mammogram earlier today. She has no history of seizures, however for the past hour or so has been shaking uncontrollably and per mom, has been disoriented. Initially on examination, patient was not responding to verbal stimulus, however soon after begins explaining that today she has felt weak. She reports to me a history of panic attacks but states this feels much worse. In the prior few days, there is no concerning history to report. At this time she does feel anxious and nauseous, and is observed to be shaking in all extremities. No reported drug use. She is satting at 100% on room air, noted to be tachycardic at this time. She states she did take an alprazolam earlier but this did not help. She is given 1 mg of IV Ativan. MD complaint: other (Seizure-like activity, shaking) Onset (ago): hour(s) Trauma: No Seizure History: No Associated symptoms: Deny chest pain, chills or fever(s) Treatments prior to arrival: benzodiazepines Related Data Home Medications Medication Instructions Recorded Confirmed acetaminophen 500 mg tablet 500 mg PO Q6H PRN Pain 04/13/21 12/13/23 (Tylenol Extra Strength) etonogestrel 68 mg subdermal See Rx Instructions .Route .COMPLEX 03/29/22 12/13/23 implant (Nexplanon) alprazolam 0.5 mg tablet 0.5 mg PO TID PRN Anxiety 11/02/23 12/13/23 Previous Rx's Medication Instructions Recorded ondansetron HCl 4 mg tablet 4 mg PO Q8H #30 tabs 04/16/24 Allergies Allergy/AdvReac Type Severity Reaction Status Date / Time methocarbamol [From Robaxin] Allergy Severe Rash/ Verified 12/13/23 15:31 couldn't breathe/ high heart rate citalopram [From Celexa] AdvReac Intermediate high heart Verified 12/13/23 15:31 rate codeine AdvReac Intermediate Rash/ high Verified 12/13/23 15:31 heart rate--has taken hydrocodone prozac Allergy Severe Caused Uncoded 12/13/23 15:31 Seratonin Syndrome Review of Systems General: Reports: 10 or more systems reviewed and unremarkable except in HPI and below Const: Denies: fever(s) or chills Eyes: Denies: change in vision ENMT: Denies: throat pain, ear or mastoid pain or nasal discharge Card: Denies: chest pain, palpitations, swelling of feet/ankles or lightheadedness Resp: Denies: dyspnea, productive cough or wheezing GI: Denies: abdominal pain, nausea, vomiting, diarrhea or constipation : Denies: flank pain, difficulty voiding, dysuria or urinary frequency Musc: Reports: muscle weakness; Denies: neck pain, back pain or joint pain Skin/Breast: Denies: rash Neuro: Reports: seizure-like activity and involuntary movements; Denies: headache(s), numbness in extremities, weakness in extremities, dizziness or Slurred speech present PFSH ED PFSH: Medical History Pituitary mass Vertigo 2020 after Covid--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 Garcia -neurologist and is on meclizine No pertinent past medical history Denies diabetes, asthma, hypertension, seizures, DVT/PE PCP: Dr. Decker Generalized anxiety disorder Diagnosed in January 2021 and is prescribed medication by her primary care provider but does follow-up with Dr. Temple at [facility] and does do therapy there as well. Surgical History History of myringotomy x 2 At the age of 9 and again at the age of 16 History of tonsillectomy and adenoidectomy Done at the age of 16 History of cholecystectomy Laparoscopic procedure in 2016 History of delivery in 2012 S/P dilation and curettage x 2 In 2014 and 2016 for miscarriage Family History Mother Diabetes Hyperlipidemia Hypertension Thyroid disease Father Diabetes Hypertension Grandmother Stroke Paternal Brother Cerebral palsy Denies family history of Colon cancer Ovarian cancer Heart disease Breast cancer Uterine cancer Social History Smoking and tobacco/nicotine status: current every day tobacco/nicotine user cigarettes Packs smoked per day: 1 Years cigarettes smoked: 16 Quit status (tobacco/nicotine): has tried quititng Number of times tried to quit tobacco: 5 Second hand smoke exposure: Yes Alcohol intake: never Substance/Drug Use: never Physical Exam Const: COMMON NORMALS: patient oriented x3 and no limitations GENERAL APPEARANCE: cooperative, well developed and anxious ORIENTATION/CONSCIOUSNESS: Yes awake, Yes oriented to person, Yes oriented to place and Yes oriented to time OTHER: Patient is tremulous on examination, tearful HENMT: COMMON NORMALS: normocephalic, atraumatic and hearing grossly normal bilaterally HEAD & SCALP: normal to inspection (No signs of trauma), normocephalic and atraumatic FACE & SINUS: normal facial exam MOUTH: Normal oral and palatal mucosa present THROAT: posterior oropharynx normal OTHER: No evidence of tongue biting Eye: COMMON NORMALS: Equal, round and reactive pupils present, EOMs intact bilaterally and conjunctivae normal CONJUNCTIVA: Yes conjunctivae normal PUPIL: Yes Equal, round and reactive pupils present Neck/C-Spine: COMMON NORMALS: full ROM, supple and no JVD Chest: COMMONS NORMALS: normal inspection of the chest and normal palpation of entire chest wall Resp: COMMON NORMALS: No retractions, No use of accessory muscles and clear to auscultation bilaterally EFFORT & INSPECTION: Yes tachypneic AUSCULTATION: clear to auscultation bilaterally Cardio: COMMON NORMALS: no JVD, regular rhythm, No clicks present (Cardio), No murmurs present (Cardio) and No rub (Cardio) RATE: tachycardic RHYTHM: regular rhythm GI: COMMON NORMALS: Normal to inspection, nondistended, normoactive bowel sounds present, Soft to palpation and non-tender AUSCULTATION: Yes normoactive bowel sounds PALPATION: Yes Soft to palpation RECTAL EXAM: deferred Extremity: COMMON NORMALS: normal to inspection, full ROM and capillary refill normal Neuro: COMMON NORMALS: patient oriented x3, moves all extremities and no sensory deficits noted SENSORIUM/ORIENTATION: Yes oriented to person, Yes oriented to place and Yes oriented to time SPEECH: Other neuro speech findings (Slow, stuttering speech) MOTOR EXAM: Tremors during motor activity present resting tremor bialteral upper extremity and bilateral lower extremity OTHER: Strength decreased in bilateral lower extremities Skin: COMMON NORMALS: no rashes or lesions noted GENERAL SKIN EXAM: no rashes or lesions noted Course Vital Signs: Vital signs: Vital Signs Temperature 98.4 F 04/16/24 17:29 Pulse Rate 100 04/16/24 18:30 Respiratory Rate 18 04/16/24 18:30 Blood Pressure 124/79 04/16/24 18:30 Pulse Oximetry 98 04/16/24 18:30 Oxygen Delivery Me thod Room Air 04/16/24 18:30 MDM - Seizure MDM Narrative Medical decision making narrative: Patient presented with diffuse shaking and anxiety, history of anxiety and depression with previous panic attacks. She did not provide much history initially, however was able to answer me when provided with verbal stimuli and other than some bilateral lower extremity weakness, was neurologically intact. She was tachycardic as well. She initially was given IV Ativan, and this did improve her symptoms. Lab work obtained, all of this was negative. EKG unremarkable, did show sinus tach rate 111, however her heart rate normalized when she calmed down. She was rechecked after normal lab work and EKG, and states that she was still having leg weakness and upon further review of her history sees that she has a history of pituitary adenoma. Imaging of the head and low back were performed and both were negative for any acute findings. Again patient was checked and states that she feels even better, still little nauseous. Due to lack of positive findings and patient's history of panic attacks, I do believe patient had a severe panic attack with psychosomatic symptoms of the lower extremity weakness, is stating that this started to feel better and she just feels tired at this time. Her CPK was normal and did not indicate any sign of muscular injury from her shaking. She is supposed to take alprazolam 3 times a day, states that she has not been doing this and prior to onset of symptoms a day she was not feeling right. I encouraged her to take her meds as prescribed and follow-up with her primary care as soon as possible for recheck. She does do therapy and does this regularly, so she will continue this as well. Strict return precautions were given. This patient's case was discussed with Dr. Yung. Lab Data 04/16/24 17:27 04/16/24 17:27 Labs: Radiology Impressions Chest X-Ray 04/16/24 17:36 IMPRESSION: No acute findings. Lumbar Spine CT 04/16/24 18:37 IMPRESSION: No acute fractures or subluxations. Sclerosis of the left iliac bone is more pronounced compared to prior CT April 09, 2018. Findings can be further evaluated with pelvic MRI if clinically indicated. Head CT 04/16/24 18:41 IMPRESSION: No acute intracranial abnormality. Laboratory Results WBC 11.51 10^3/uL (3.29-11.43) H 04/16/24 17:27 RBC 5.30 10^6/uL (3.85-5.65) 04/16/24 17:27 Hgb 14.90 g/dL (11.27-16.99) 04/16/24 17:27 Hct 45.4 % (36-47) 04/16/24 17:27 MCV 85.7 fl (85-98) 04/16/24 17:27 MCH 28.1 pg (27-33) 04/16/24 17:27 MCHC 32.8 g/dL (30-55) 04/16/24 17:27 RDW 13.3 % (12.1-15.1) 04/16/24 17:27 Plt Count 309 10^3/cmm (157-399) 04/16/24 17:27 MPV 9.8 fL (7.4-10.4) 04/16/24 17:27 Neut % (Auto) 47.3 % 04/16/24 17:27 Lymph % (Auto) 43.5 % 04/16/24 17:27 [place] % (Auto) 7.1 % 04/16/24 17:27 Eos % (Auto) 1.1 % 04/16/24 17:27 Baso % (Auto) 0.7 % 04/16/24 17:27 Neut # (Auto) 5.44 10^3/uL (1.8-7.7) 04/16/24 17:27 Lymph # (Auto) 5.0 10^3/uL (0.8-4.8) H 04/16/24 17:27 [place] # (Auto) 0.8 10^3/uL (0.2-0.9) 04/16/24 17:27 Eos # (Auto) 0.1 10^3/uL (0.0-0.8) 04/16/24 17:27 Baso # (Auto) 0.1 10^3/uL (0.0-0.1) 04/16/24 17:27 Nucleated RBC % (auto) 0 % 04/16/24 17:27 Nucleated RBCs # 0.0 /100WBC 04/16/24 17:27 Sodium 139 mmol/L (136-145) 04/16/24 17:27 Potassium 3.6 mmol/L (3.5-5.1) 04/16/24 17:27 Chloride 103 mmol/L (98-107) 04/16/24 17:27 Carbon Dioxide 22 mmol/L (22-29) 04/16/24 17:27 Anion Gap 17.6 (5-19) 04/16/24 17:27 BUN 9 mg/dL (6-20) 04/16/24 17:27 Creatinine 0.7 mg/dL (0.5-0.9) 04/16/24 17:27 GFR Calculation 97.6 mL/min (90-130) 04/16/24 17:27 Glucose 96 mg/dL (65-115) 04/16/24 17:27 Calculated Osmolality 287 mOsm/kg (285-295) 04/16/24 17:27 Calcium 9.3 mg/dL (8.5-10.5) 04/16/24 17:27 Magnesium 2.1 mg/dL (1.7-2.3) 04/16/24 17:27 Total Bilirubin 0.3 mg/dL (0.15-1.2) 04/16/24 17:27 AST 14 U/L (0-32) 04/16/24 17:27 ALT 13 U/L (0-33) 04/16/24 17:27 Alkaline Phosphatase 66 U/L (35-105) 04/16/24 17:27 Creatine Kinase 249 U/L (26-192) H 04/16/24 17:27 Total Protein 7.8 g/dL (6.6-8.7) 04/16/24 17:27 Albumin 4.7 g/dL (3.5-5.2) 04/16/24 17:27 Globulin 3.1 g/dL (1.3-4.6) 04/16/24 17: TSH 2.46 uIU/mL (0.27-4.20) 04/16/24 17:27 HCG, Qual Negative (Negative) 04/16/24 17:27 Urine Color Yellow (Yellow) 04/16/24 18:00 Urine Appearance Clear (CLEAR) 04/16/24 18:00 Urine pH 7 (5-7) 04/16/24 18:00 Ur Specific [place] 1.010 (1.005-1.030) 04/16/24 18:00 Urine Protein Neg (Negative) 04/16/24 18:00 Urine Glucose (UA) Norm (Normal) 04/16/24 18:00 Urine Ketones Negative (Negative) 04/16/24 18:00 Urine Blood Neg (Negative) 04/16/24 18:00 Urine Nitrate Negative (Negative) 04/16/24 18:00 Urine Bilirubin Neg (Negative) 04/16/24 18:00 Urine Urobilinogen Norm mg/dL (Negative) 04/16/24 18:00 Ur Leukocyte Esterase Negative (Negative) 04/16/24 18:00 Amorphous Sediment Not Reportable 04/16/24 18:00 Urine Opiates Screen Negative ng/mL (Negative) 04/16/24 18:00 Ur Barbiturates Screen Negative ng/mL (Negative) 04/16/24 18:00 Ur Phencyclidine Scrn Negative ng/mL (Negative) 04/16/24 18:00 Ur Amphetamines Screen Negative ng/mL (Negative) 04/16/24 18:00 U Benzodiazepines Scrn Negative ng/mL (Negative) 04/16/24 18:00 Urine Cocaine Screen Negative ng/mL (Negative) 04/16/24 18:00 U Marijuana (THC) Screen Negative ng/mL (Negative) 04/16/24 18:00 All radiology interpretation(s) finalized by discharge Discharge Plan Discharge Patient Disposition: Home Clinical Impression: Panic attack Condition: Stable Prescriptions: New ondansetron HCl 4 mg tablet 4 mg PO Q8H Qty: 30 0RF No Action Nexplanon 68 mg implant See Rx Instructions .ROUTE .COMPLEX Patient Comments: Implanted to left arm 07/15/2020. Good for 5 years. Rx Instructions: 1 implant subdermally acetaminophen [Tylenol Extra Strength] 500 mg Tablet 500 mg PO Q6H PRN (Reason: Pain) alprazolam 0.5 mg tablet 0.5 mg PO TID PRN (Reason: Anxiety) Discharge Orders: Discharge ED (Routine); Ordered 04/16/24 Ordered By: Vitaliy Brady Referrals: Lloyd Decker MD [Primary Care Provider] - Discharge Diet: Usual diet Discharge Activity: Increase activity as tolerated Patient Instructions: Panic Attack (ED) Activity Restrictions/Additional Instructions: Continue taking your alprazolam as prescribed until following up with your primary care provider to discuss further medications. Zofran for nausea. Avoid any potential triggers. Return with any new or worsening symptoms. Coding Level of Care Code ED Public Safety Officer for Michael Dupont
--- NOTE | 2024-04-16 17:38 | ECG_ITS ---
[facility] Test Date: 2024-04-16 Pat Name: Jagruti Carias Department: Room: Gender: Female Relations Coordinator: : 1990 Requested By: Vitaliy Vines Order Number: [id number] Cruz MD: Kit March M.D. Measurements Intervals [place] Rate: 111 P: 71 MO: 131 QRS: 46 QRSD: 92 T: 60 QT: 325 QTc: 443 Interpretive Statements SINUS TACHYCARDIA MODERATE ST DEPRESSION [0.05+ mV ST DEPRESSION] Compared to ECG 11/02/2023 09:06:59 ST (T wave) deviation now present Sinus rhythm no longer present Electronically Signed On 04-16-2024 18:19:07 CDT by Kit March M.D. [email or web address]
[2024-04-16] MEDS: LORazepam 2 mg/mL INJ 1 mL 1 MG IVP (17:46)
[2024-04-16] MEDS: ondansetron 2 mg/ML SDV 2 mL 4 MG IVP ×2 (17:46→20:10)
[2024-04-16 17:50] LABS: Basophils # 0.1 10^3/uL (0.0-0.1); Basophils % 0.7 %; Eosinophils # 0.1 10^3/uL (0.0-0.8); Eosinophils % 1.1 %; Hematocrit 45.4 % (36-47); Lymphocytes % 43.5 %; Mean Corpuscular HGB Conc 32.8 g/dL (30-55); Mean Corpuscular Hemoglobin 28.1 pg (27-33); Mean Corpuscular Volume 85.7 fl (85-98); Mean Platelet Volume 9.8 fL (7.4-10.4); Monocytes # 0.8 10^3/uL (0.2-0.9); Monocytes % 7.1 %; Neutrophils # 5.44 10^3/uL (1.8-7.7); Neutrophils % 47.3 %; Nucleated Red Blood Cells % 0 %; Platelet Count 309 10^3/cmm (157-399); Red Cell Distribution Width 13.3 % (12.1-15.1); White Blood Count 11.51 10^3/uL (3.29-11.43)
[2024-04-16 18:03] LABS: HCG, Serum Qual Negative (Negative)
[2024-04-16 18:15] LABS: Charge for UA Resulting for Rev
[2024-04-16 18:17] LABS: Alanine Aminotransferase 13 U/L (0-33); Albumin Level 4.7 g/dL (3.5-5.2); Alkaline Phosphatase 66 U/L (35-105); Anion Gap 17.6 (5-19); Aspartate Amino Transferase 14 U/L (0-32); Blood Urea Nitrogen 9 mg/dL (6-20); Calcium 9.3 mg/dL (8.5-10.5); Carbon Dioxide 22 mmol/L (22-29); Chloride 103 mmol/L (98-107); Creatine Phosphokinase 249 U/L (26-192); Globulin 3.1 g/dL (1.3-4.6); Glomerular Filtration Rate 97.6 mL/min (90-130); Glucose 96 mg/dL (65-115); Magnesium 2.1 mg/dL (1.7-2.3); Osmolality Calculated 287 mOsm/kg (285-295); Potassium 3.6 mmol/L (3.5-5.1); Sodium 139 mmol/L (136-145); Thyroid Stimulating Hormone 2.46 uIU/mL (0.27-4.20); Total Bilirubin 0.3 mg/dL (0.15-1.2); Total Protein 7.8 g/dL (6.6-8.7)
[2024-04-16 18:18] LABS: Bilirubin Urine Neg (Negative); Blood Urine Neg (Negative); Glucose Urine UA Norm (Normal); Ketones Urine Negative (Negative); Leukocyte Esterase Urine Negative (Negative); Nitrate Urine Negative (Negative); Protein Urine Neg (Negative); Urine Appearance Clear (CLEAR); Urine Color Yellow (Yellow); Urobilinogen Urine Norm (Negative); pH Urine 7 (5-7)
[2024-04-16 18:26] LABS: Amphetamines Screen Urine Negative (Negative); Barbiturates Screen Urine Negative (Negative); Benzodiazepines Screen Urine Negative (Negative); Cocaine Screen Urine Negative (Negative); Opiate Screen Urine Negative (Negative); PCP Screen Urine Negative (Negative); THC Screen Urine Negative (Negative)
[2024-04-16 18:30] VITALS: BP 124/79; PULSE 100; RESP 18; O2SAT 98
--- NOTE | 2024-04-16 18:37 | CTR_ITS ---
PROCEDURE INFORMATION: Exam: CT Lumbar Spine Without Contrast Exam date and time: 04/16/2024 6:55 PM Age: 33 years old Clinical indication: Weakness; Additional info: Can't feel legs TECHNIQUE: Imaging protocol: Computed tomography of the lumbar spine without contrast. Radiation optimization: All CT scans at this facility use at least one of these dose optimization techniques: automated exposure control; mA and/or kV adjustment per patient size (includes targeted exams where dose is matched to clinical indication); or iterative reconstruction. COMPARISON: CT abdomen pelvis w con* [id number] 04/09/2018 4:34 PM RADIATION DOSE METRICS: Total DLP (mGy-cm): 1018 FINDINGS: Bones/joints: Mild levo scoliotic curvature of the lumbar spine. No acute fractures or subluxations. Normal sagittal alignment. The vertebral body heights are preserved. Chronic mild endplate irregularity seen at T11-T12 and L1-L2. The intervertebral disc spaces are preserved. Posterior elements are intact. No central canal stenosis. Sclerosis of the left iliac bone more pronounced compared to prior CT April 09, 2018. Gallbladder and biliary ducts: Status post cholecystectomy. Soft tissues: Unremarkable. CT/CT lumbar spine wo con* [id number] IMPRESSION: No acute fractures or subluxations. Sclerosis of the left iliac bone is more pronounced compared to prior CT April 09, 2018. Findings can be further evaluated with pelvic MRI if clinically indicated.
--- NOTE | 2024-04-16 18:41 | CTR_ITS ---
PROCEDURE INFORMATION: Exam: CT Head Without Contrast Exam date and time: 04/16/2024 6:53 PM Age: 33 years old Clinical indication: Other: Shaking; Additional info: Seizure-like activity TECHNIQUE: Imaging protocol: Computed tomography of the head without contrast. Radiation optimization: All CT scans at this facility use at least one of these dose optimization techniques: automated exposure control; mA and/or kV adjustment per patient size (includes targeted exams where dose is matched to clinical indication); or iterative reconstruction. COMPARISON: MR head wo/w con [id number] 09/15/2022 7:41 AM RADIATION DOSE METRICS: Total DLP (mGy-cm): 1024 FINDINGS: Brain: Normal. No hemorrhage. Unremarkable white matter. No mass effect. Cerebral ventricles: No ventriculomegaly. Paranasal sinuses: Visualized sinuses are unremarkable. No fluid levels. Mastoid air cells: Visualized mastoid air cells are well aerated. Bones: Unremarkable. No acute fracture. Soft tissues: Unremarkable. CT/CT head wo con* [id number] IMPRESSION: No acute intracranial abnormality.
[2024-04-16 20:00] VITALS: BP 99/62; O2SAT 98
[2024-04-16 20:26] VITALS: BP 105/68; PULSE 80; RESP 16; O2SAT 93
== END 2024-04-16 20:28 | disposition home or self-care (01) ==
PROVIDERS: Emergency Provider Physician Assistant; PCP Family Medicine
DX: F41.0 Panic disorder [episodic paroxysmal anxiety] (principal); F17.210 Nicotine dependence, cigarettes, uncomplicated
CPT/HCPCS: 70450; 71045; 72131; 80053; 80306; 81003; 81015; 82550; 83735; 84443; 84703; 85025; 93005; 96374; 96375; 96376; 99285; J2060; J2405

== ENCOUNTER 2024-05-26 10:39 | Emergency (ER) | payer MEDICAID, SELFPAY ==
[2024-05-26 11:07] VITALS: BP 100/65; PULSE 86; RESP 16; TEMP 36.8; O2SAT 99; BMI 31.3
--- NOTE | 2024-05-26 11:41 | ED_ITS ---
HPI - Skin/Abscess/Foreign Bdy General: Chief complaint: Skin/Abscess/Foreign Body Stated complaint: spot of groin Time Seen by Provider: 05/26/24 11:19 History of Present Illness: Patient presents to the ER with complaints of an abscess on her left groin. She notes a red spot on her left labia approximately week ago it has gotten bigger more painful and more erythematous. She has never had 1 of these before in this area. However she has not had 1 in her left armpit when she was younger. Related Data Home Medications Medication Instructions Recorded Confirmed acetaminophen 500 mg tablet 500 mg PO Q6H PRN Pain 04/13/21 12/13/23 (Tylenol Extra Strength) etonogestrel 68 mg subdermal See Rx Instructions .Route .COMPLEX 03/29/22 12/13/23 implant (Nexplanon) alprazolam 0.5 mg tablet 0.5 mg PO TID PRN Anxiety 11/02/23 12/13/23 Previous Rx's Medication Instructions Recorded ondansetron HCl 4 mg tablet 4 mg PO Q8H #30 tabs 04/16/24 sulfamethoxazole 800 1 tab PO BID #14 tabs 05/26/24 mg-trimethoprim 160 mg tablet (Bactrim DS) Allergies Allergy/AdvReac Type Severity Reaction Status Date / Time methocarbamol [From Robaxin] Allergy Severe Rash/ Verified 05/26/24 11:11 couldn't breathe/ high heart rate citalopram [From Celexa] AdvReac Intermediate high heart Verified 05/26/24 11:11 rate codeine AdvReac Intermediate Rash/ high Verified 05/26/24 11:11 heart rate--has taken hydrocodone prozac Allergy Severe Caused Uncoded 05/26/24 11:11 Seratonin Syndrome Review of Systems General: Reports: 10 or more systems reviewed and unremarkable except in HPI and below PFSH ED PFSH: Medical History Pituitary mass Vertigo 2020 after Covid--states she was diagnosed with Sui-Pv-Zvgmqwomjyfc syndrome and follows up with Dr. Garcia -neurologist and is on meclizine No pertinent past medical history Denies diabetes, asthma, hypertension, seizures, DVT/PE PCP: Dr. Decker Generalized anxiety disorder Diagnosed in January 2021 and is prescribed medication by her primary care provider but does follow-up with Dr. Temple at [facility] [place] and does do therapy there as well. Surgical History History of myringotomy x 2 At the age of 9 and again at the age of 16 History of tonsillectomy and adenoidectomy Done at the age of 16 History of cholecystectomy Laparoscopic procedure in 2016 History of delivery in 2012 S/P dilation and curettage x 2 In 2014 and 2016 for miscarriage Family History Mother Diabetes Hyperlipidemia Hypertension Thyroid disease Father Diabetes Hypertension Grandmother Stroke Paternal Brother Cerebral palsy Denies family history of Colon cancer Ovarian cancer Heart disease Breast cancer Uterine cancer Social History Smoking and tobacco/nicotine status: current every day tobacco/nicotine user cigarettes Packs smoked per day: 1 Years cigarettes smoked: 16 Quit status (tobacco/nicotine): has tried quititng Number of times tried to quit tobacco: 5 Second hand smoke exposure: Yes Alcohol intake: never Substance/Drug Use: never Physical Exam Const: COMMON NORMALS: no acute distress, average body habitus, patient oriented x3, no limitations, healthy appearing, alert and well nourished Neck/C-Spine: COMMON NORMALS: no JVD Chest: COMMONS NORMALS: normal inspection of the chest and normal palpation of entire chest wall Resp: COMMON NORMALS: normal respiratory effort, No retractions, No use of accessory muscles and clear to auscultation bilaterally AUSCULTATION: clear to auscultation bilaterally Cardio: COMMON NORMALS: no JVD, regular rate, regular rhythm, S1 normal heart sound present, S2 normal heart sound present, No gallops present (Cardio), No clicks present (Cardio), No murmurs present (Cardio) and No rub (Cardio) RATE: regular rate RHYTHM: regular rhythm HEART SOUNDS: S1 normal heart sound present and S2 normal heart sound present GI: COMMON NORMALS: Normal to inspection, nondistended, normoactive bowel sounds present, Soft to palpation, non-tender, No hepatosplenomegaly present and no masses PALPATION: Yes Soft to palpation and Yes No hepatosplenomegaly present : OTHER: Erythematous raised tender area with obvious fluctuance on the left labia. No obvious drainage. Neuro: COMMON NORMALS: patient oriented x3 SENSORIUM/ORIENTATION: Yes alert Procedures Abscess I/D Site: other (Left labia) Side (if applicable): left Sedation/analgesia: none Local Anesthetic: lidocaine 1% Amount of anesthesia used (mL): 1 Technique: incised with #11 blade Amount of fluid expressed (mL): 3 Irrigation: No Packing used?: none Course Vital Signs: Vital signs: Vital Signs Temperature 98.2 F 05/26/24 11:07 Pulse Rate 86 05/26/24 11:07 Respiratory Rate 16 05/26/24 11:07 Blood Pressure 100/65 05/26/24 11:07 Pulse Oximetry 99 05/26/24 11:07 Oxygen Delivery Me thod Room Air 05/26/24 11:07 MDM - Skin/Abscess/Foreign Bdy Medicial Decision Making Left labia was anesthetized with 1% lidocaine approximately 1 cc, stab incision was made purulent drainage was cultured, all drainage was expressed. Patient tolerated procedure well. Will place the patient on Bactrim DS will be sent in to her pharmacy, culture was obtained. Differential Diagnosis Likely abscess of skin or subcutaneous tissue Medical Records I reviewed the patient's medical records. Lab Data I reviewed the patient's lab results. No radiology studies performed this visit Discharge Plan Discharge Patient Disposition: Home Clinical Impression: Abscess of skin or subcutaneous tissue Qualifiers: Site of cutaneous abscess of trunk: groin Condition: Stable Prescriptions: New Bactrim DS 800-160 mg tablet 1 tab PO BID Qty: 14 0RF No Action Nexplanon 68 mg implant See Rx Instructions .ROUTE .COMPLEX Patient Comments: Implanted to left arm 07/15/2020. Good for 5 years. Rx Instructions: 1 implant subdermally acetaminophen [Tylenol Extra Strength] 500 mg Tablet 500 mg PO Q6H PRN (Reason: Pain) alprazolam 0.5 mg tablet 0.5 mg PO TID PRN (Reason: Anxiety) ondansetron HCl 4 mg tablet 4 mg PO Q8H Qty: 30 0RF Discharge Orders: Discharge ED (Routine); Ordered 05/26/24 Ordered By: Marvin Yung Referrals: Lloyd Decker MD [Primary Care Provider] - 1 week Patient Instructions: Abscess (ED), Warm Compress or Soak (ED), Abscess Incision and Drainage (DC) Activity Restrictions/Additional Instructions: Please try to keep area clean and dry, change dressing as needed, take all antibiotics as directed, warm sitz bath's 2-3 times a day gentle massage of the area to enhance draining. Please follow-up with your family proximal physician within approximately 7 to 10 days or sooner as needed. Coding Level of Care Code ED Pharmacy Intake Coordinator for Michael Dupont
[2024-05-26] MEDS: lidocaine 1% 10 ML INJ XX (11:48)
[2024-05-26 11:55] VITALS: BP 111/74; PULSE 83; O2SAT 91
== END 2024-05-26 11:57 | disposition home or self-care (01) ==
PROVIDERS: Emergency Provider Emergency Medicine; PCP Family Medicine
DX: L02.214 Cutaneous abscess of groin (principal)
CPT/HCPCS: 10060; 87070; 99283

== ENCOUNTER 2025-08-09 12:03 | Outpatient (CLI) | payer MEDICAID, SELFPAY ==
[2025-08-09 12:22] VITALS: BP 135/70; PULSE 90
[2025-08-09 12:24] VITALS: TEMP 36.2
[2025-08-09 12:28] VITALS: BMI 38.7
[2025-08-09 12:39] VITALS: BP 117/62; PULSE 86
[2025-08-09 12:54] VITALS: BP 119/64; PULSE 90
[2025-08-09 13:09] VITALS: BP 117/59; PULSE 93
[2025-08-09] MEDS: magnesium citrate Btl 296 mL PO (13:14)
[2025-08-09 13:19] VITALS: BP 117/59; PULSE 93; RESP 16
[2025-08-09 13:48] LABS: Glucose Urine UA Negative (Normal); Nitrate Urine Negative (Negative); Specific Gravity, Urine 1.008 (1.005-1.030)
== END 2025-08-09 13:20 | disposition home or self-care (01) ==
LOC: OPOB 12:09 → OBGYN 12:16
PROVIDERS: PCP Family Medicine; Visit Provider Family Medicine
DX: O26.899 Other specified pregnancy related conditions, unspecified trimester (principal); Z3A.00 Weeks of gestation of pregnancy not specified; R10.9 Unspecified abdominal pain
CPT/HCPCS: 59025; 81001; 99211; J9999